=== PATIENT | female | born 1955 | race Caucasian/White ===

== ENCOUNTER → 2021-06-22 | Outpatient (CLI) | payer MEDICARE | LOC: COL.RAD 07:56 | DX: M51.16 Intervertebral disc disorders with radiculopathy, lumbar region (principal); E27.8 Other specified disorders of adrenal gland ==

== ENCOUNTER → 2021-07-15 | Outpatient (CLI) | payer MEDICARE | LOC: COL.RAD 06:48 | DX: D35.01 Benign neoplasm of right adrenal gland (principal); D35.02 Benign neoplasm of left adrenal gland; E27.8 Other specified disorders of adrenal gland | CPT/HCPCS: Q9967 ==

== ENCOUNTER 2022-04-05 11:12 | Day surgery (SDC) | payer MEDICARE ==
[2022-04-05] MEDS ORDERED: ZOCOR 10MG10 MG PO (11:39)
[2022-04-05] MEDS ORDERED: ANTIVERT 25MG25 MG PO (11:40)
[2022-04-05] MEDS ORDERED: MOBIC15 MG PO (11:41)
[2022-04-05] MEDS ORDERED: NEXIUM 40MG40 MG PO (11:41)
[2022-04-05] MEDS ORDERED: CLARITIN 1010 MG/TAB PO (11:42)
[2022-04-05] MEDS ORDERED: EXCEDRIN TENSIO1 CAP PO (11:43)
[2022-04-05] MEDS ORDERED: KRILL OIL 5001 EACH PO (12:07)
[2022-04-05] MEDS ORDERED: MULTI VITAMINS1 TAB PO (12:08)
[2022-04-05] MEDS ORDERED: NATURAL MAGNES200 MG PO (12:08)
[2022-04-05] MEDS ORDERED: CALCIUM 600MG+D1 TAB PO (12:09)
[2022-04-05] MEDS ORDERED: KLOR-CON 88 ME1 PO (12:10)
[2022-04-05 13:25] VITALS: BP 136/57; PULSE 66
--- NOTE | 2022-04-05 13:25 | NUR ---
PATIENT RETURNS TO [facility] PER CART AND TRANSFERS FROM CART TO RECLINER WITH TWO PERSON ASSIST. IV FLUIDS INFUSING. CALL LIGHT IN REACH. OFFERS NO COMPLAINTS OF DISCOMFORT. SPOUSE IN ROOM. GIVEN WATER TO SIP ON. TEMP 97.5.
[2022-04-05 13:40] VITALS: BP 138/84; PULSE 89
--- NOTE | 2022-04-05 13:40 | NUR ---
DR. BURRELL IN THE ROOM AND ANSWERS ALL QUESTIONS AND WILL AWAIT BIOPSIES. TOLERATES WATER.
[2022-04-05 13:55] VITALS: BP 158/76; PULSE 66
--- NOTE | 2022-04-05 13:55 | NUR ---
EATING PUDDING. DENIES DIFFICULTY SWALLOWING.
--- NOTE | 2022-04-05 14:07 | NUR ---
ASSISTED UP TO THE BATHROOM AND AMBULATES WITH STANDBY ASSIST. IV TO INT.
--- NOTE | 2022-04-05 14:25 | NUR ---
DISMISSAL INSTRUCTIONS GIVEN AND VOICES UNDERSTANDING OF THESE. INT NEEDLE DISCONTINUED.
--- NOTE | 2022-04-05 14:29 | NUR ---
PATIENT DISMISSED TO HOME DRIVEN BY SPOUSE AND TAKEN TO THE VEHICLE PER WHEELCHAIR AND ASSISTED INTO CAR WITH INSTRUCTIONS IN HAND AND INSTRUCTED TO STAY ON FULL LIQUID DIET.
== END 2022-04-05 14:29 | disposition home or self-care (01) ==
LOC: SDCO 11:12
DX: Z12.11 Encounter for screening for malignant neoplasm of colon (principal); K29.60 Other gastritis without bleeding; K31.2 Hourglass stricture and stenosis of stomach; K56.609 Unspecified intestinal obstruction, unspecified as to partial versus complete obstruction; K64.0 First degree hemorrhoids; K57.30 Diverticulosis of large intestine without perforation or abscess without bleeding
CPT/HCPCS: J2704; J7030

== ENCOUNTER 2022-04-10 11:53 | Day surgery (SDC) | payer MEDICARE ==
[~2022-04-10] VITALS: Ht 168.9 cm; Wt 97.1 kg
[~2022-04-10 11:53] MED LIST: ANTIVERT 25MG25 MG PO; CALCIUM 600MG+D1 TAB PO; CLARITIN 1010 MG/TAB PO; EXCEDRIN TENSIO1 CAP PO; KLOR-CON 88 ME1 PO; KRILL OIL 5001 EACH PO; MOBIC15 MG PO; MULTI VITAMINS1 TAB PO; NATURAL MAGNES200 MG PO; NEXIUM 40MG40 MG PO; ZOCOR 10MG10 MG PO
[2022-04-10 12:45] VITALS: BP 151/77; PULSE 73; TEMP 98.6
[2022-04-10] MEDS ORDERED: EXCEDRIN TENSIO1 CAP PO (13:21)
[2022-04-10] MEDS ORDERED: SKELAXIN 800MG800 MG PO (13:22)
[2022-04-10 14:15] VITALS: BP 127/49; PULSE 65; TEMP 97
[2022-04-10 14:30] VITALS: BP 129/60; PULSE 60
[2022-04-10 14:45] VITALS: BP 143/65; PULSE 61
--- NOTE | 2022-04-10 15:05 | NUR ---
1415 Pt returns from endo procedure via cart and RN assist to [facility] [place] [facility]. Pt ambulates from cart to recliner with RN assist. Monitors on and alarms set. Call light within reach. Report received from ROBERTO Ayoub. Pt alert and oriented. Pt requests pudding and water. Pt denies any pain or nausea. Pt's present in room. 1420 Pt taking food and drink well. No complications noted. 1458 Discharge instructions given to pt and pt's . All questions answered to their satisfaction. Handed to them are a thank you card and discharge information. 1505 Pt transferred out of hospital via wheelchair and this RN assist, to private vehicle driven by pt's .
== END 2022-04-10 15:05 | disposition home or self-care (01) ==
LOC: SDCO 11:53
DX: K31.1 Adult hypertrophic pyloric stenosis (principal); K29.31 Chronic superficial gastritis with bleeding; K21.9 Gastro-esophageal reflux disease without esophagitis; E66.9 Obesity, unspecified
CPT/HCPCS: C1726; J2704; J7120